=== PATIENT | male | born 1995 | race African-American/Black ===

== ENCOUNTER 2017-04-14 12:26 | Inpatient (IN) ==
[2017-04-14] MEDS ORDERED: INFLUENZA VIRUS VACCINE 0.5 ML SYRINGE IM ONE (14:47)
[2017-04-14] MEDS ORDERED: PNEUMOCOCCAL VACCINE (23 VALENT) 0.5 ML VIAL IM ONE (14:54)
[2017-04-14] MEDS ORDERED: SODIUM BICARB INJ 100 MEQ in STERILE WATER INJ 400 ML IV PRN (15:32)
[2017-04-14] MEDS ORDERED: SODIUM CHLORIDE 0.9% 1,000 ML IV ONE (15:32)
[2017-04-14] MEDS ORDERED: MAGNESIUM SULF RIDER 2 GM in PREMIX 1 EACH IV PRN (15:32)
[2017-04-14] MEDS ORDERED: SODIUM CHLORIDE 0.9% IV PRN (15:32)
[2017-04-14] MEDS ORDERED: DEXTROSE 50% 25 GM/50 ML VIAL IV PRN (15:32)
[2017-04-14] MEDS ORDERED: SODIUM PHOSPHATE IV PRN (15:32)
[2017-04-14] MEDS ORDERED: POTASSIUM CHLORIDE RIDER 10 MEQ in PREMIX 1 EACH IV PRN (15:32)
[2017-04-14] MEDS ORDERED: INSULIN REGULAR 100 UNIT/ML IV ONE (15:32)
[2017-04-14] MEDS ORDERED: MAGNESIUM SULF RIDER 4 GM in PREMIX 1 EACH IV PRN (15:32)
[2017-04-14] MEDS ORDERED: INSULIN REGULAR DRIP 100 ML IV SCH (16:00)
[2017-04-14 16:20] LABS: ABG Base Excess -4.7 MMOL/L (-2.5-2.5); ABG HCO3 20.6 MMOL/L (20-26); ABG Oxygen Saturation 96.4 % (95-100); ABG PCO2 41.7 MM HG (35-48); ABG PH 7.318 (7.35-7.45); ABG PO2 87.3 MM HG (80-95); ABG TCO2 18.5 MMOL/L (23-27); Allen Test Positive; Pt O2 Delivery Device Room Air
[2017-04-14] MEDS: SODIUM CHLORIDE 0.9% 1,000 ML IV SCH ×4 (17:45→21:38)
[2017-04-14 19:05] LABS: Calcium 8.6 MG/DL (8.5-10.1); Osmolality,Calculated 282.8 MOS/KG (273-304); Potassium 3.9 MMOL/L (3.5-5.1)
[2017-04-14 19:06] LABS: Calcium 8.5 MG/DL (8.5-10.1); Osmolality,Calculated 283.7 MOS/KG (273-304); Potassium 4.1 MMOL/L (3.5-5.1)
[2017-04-14] MEDS ORDERED: ENOXAPARIN 40 MG/0.4 ML SYRINGE SUBCUT SCH (21:00)
[2017-04-14] MEDS: DEXTROSE 50% 25 GM/50 ML VIAL IV PRN ×2 (21:34→23:01)
[2017-04-14 22:12] LABS: Allen Test Positive; Pt O2 Delivery Device Room Air
[2017-04-14 22:15] LABS: ABG Base Excess 0.9 MMOL/L (-2.5-2.5); ABG HCO3 25.2 MMOL/L (20-26); ABG Oxygen Saturation 98.5 % (95-100); ABG PCO2 47.9 MM HG (35-48); ABG TCO2 23.6 MMOL/L (23-27)
[2017-04-14] MEDS: DEXTROSE 5% NACL 0.45% 1,000 ML IV SCH (22:33)
[2017-04-15 00:36] LABS: Calcium 8.1 MG/DL (8.5-10.1); Osmolality,Calculated 280.4 MOS/KG (273-304); Potassium 3.3 MMOL/L (3.5-5.1)
[2017-04-15] MEDS ORDERED: POTASSIUM CHLORIDE RIDER 0 ML IV ONE (00:47)
[2017-04-15] MEDS ORDERED: POTASSIUM CHLORIDE RIDER 100 ML IV ONE (00:47)
[2017-04-15] MEDS: POTASSIUM CHLORIDE 20 MEQ TABLET PO PRN ×3 (01:03→10:01)
[2017-04-15 05:38] LABS: Basophils % 0.6 % (0.0-0.8); Eosinophils # 0.2 10*3/uL (0.0-0.87); Eosinophils % 3.1 % (0.00-10.9); Hematocrit 39.8 VOL% (42.0-52.0); Hemoglobin 13.5 GM/DL (14.0-18.0); Immature Granulocytes % 0.3 %; Immature Granulocytes Absolute 0.02 #; Lymphocytes # 2.6 10*3/uL (1.4-4.0); Lymphocytes % 39.3 % (21.2-54.2); Mean Corpuscular HGB Conc 33.9 GM/DL (32-36); Mean Corpuscular Hemoglobin 30 PG (27-34); Mean Corpuscular Volume 87.9 FL (87-102); Mean Platelet Volume 11.5 FL (9.6-12.0); Monocytes # 0.3 10*3/uL (0.11-0.8); Monocytes % 5.1 % (1.7-12.7); Neutrophils # 3.4 10*3/uL (1.4-7.4); Neutrophils % 51.6 % (38.7-73.9); Platelet Count 210 T/CUMM (130-400); Red Blood Count 4.53 MC/CUMM (3.8-5.5); Red Cell Distribution Width 11.9 % (9.3-17.3); White Blood Count 6.5 T/CUMM (4-12)
[2017-04-15 06:13] LABS: Calcium 8.2 MG/DL (8.5-10.1); Osmolality,Calculated 275.5 MOS/KG (273-304); Potassium 3.7 MMOL/L (3.5-5.1)
[2017-04-15 06:16] LABS: Magnesium 2.3 MG/DL (1.8-2.4); Phosphorous 2.4 MG/DL (2.5-4.9)
[2017-04-15] MEDS: DEXTROSE 5% NACL 0.45% 1,000 ML IV SCH ×2 (06:43→14:15)
[2017-04-15] MEDS ORDERED: SODIUM CHLORIDE 0.45% 1,000 ML IV SCH (08:32)
[2017-04-15] MEDS ORDERED: INSULIN LISPRO 100 UNIT/ML SUBCUT SCH (11:30)
[2017-04-15] MEDS ORDERED: DEXTROSE 50% 25 GM/50 ML VIAL IV PRN (12:00)
[2017-04-15] MEDS ORDERED: GLUCAGON 1 MG VIAL IM PRN (12:00)
[2017-04-15 13:01] LABS: Calcium 8.2 MG/DL (8.5-10.1); Osmolality,Calculated 282.5 MOS/KG (273-304); Potassium 4.9 MMOL/L (3.5-5.1)
[2017-04-15 13:29] VITALS: BP 118/97
[2017-04-15] MEDS ORDERED: INSULIN REGULAR 100 UNIT/ML SUBCUT ONE (13:56)
== END 2017-04-15 14:52 | disposition home or self-care (01) | DRG 639 ==
LOC: SUATTDRO 14:14 → N.ICU 14:14
PROVIDERS: ADMIT Internal Medicine Nephrology; ATTEND Hospitalist